=== PATIENT | female | born 1995 | race Caucasian/White ===

== ENCOUNTER 2016-07-11 09:58 | Emergency (ER) | payer OTHER ==
--- NOTE | 2016-07-11 10:08 | ER Document Report ---
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 She is complaining of left toe pain. She just received 1 mg of morphine per EMS so she currently states that her pain is a 1 out of 5 in severity. She does have full sensation, able to move all digits except the left big toe. Capillary refill is less than 2 seconds in the right toe and all other LE's digits on that foot. Obvious deformity but no open wounds. I have greeted and performed a rapid initial assessment of this patient. A comprehensive ED assessment and evaluation of the patient, analysis of test results and completion of the medical decision making process will be conducted by additional ED providers. - Related Data Allergies/Adverse Reactions: iodine Allergy (Verified 07/11/16 10:03) Penicillins Allergy (Verified 07/11/16 10:03)
[2016-07-11] MEDS ORDERED: HYDROCODONE/ACETAMINOPHEN 5-325 MG TABLET PO ONE (12:55)
--- NOTE | 2016-07-11 13:49 | ER Document Report ---
ED General - General Chief Complaint: Toe Injury Stated Complaint: LEFT TOE PAIN Mode of Arrival: Wheelchair Information source: Patient Notes: 20 yr old female presents after left foot toe injury at work, pt denies any other concerns TRAVEL OUTSIDE OF THE [place] IN LAST 30 DAYS: No - HPI Onset: Just prior to arrival Onset/Duration: Sudden Quality of pain: Achy Severity: Mild Pain Level: 1 Associated symptoms: Other Exacerbated by: Movement Relieved by: Denies Similar symptoms previously: No Recently seen / treated by doctor: No - Related Data Allergies/Adverse Reactions: iodine Allergy (Verified 07/11/16 10:03) Penicillins Allergy (Verified 07/11/16 10:03) Past Medical History - Social History Smoking Status: Never Smoker Cigarette use (# per day): No Chew tobacco use (# tins/day): No Smoking Education Provided: No Frequency of alcohol use: None Drug Abuse: None Family History: Reviewed & Not Pertinent Patient has suicidal ideation: No Patient has homicidal ideation: No Renal/ Medical History: Denies: Hx Peritoneal Dialysis Review of Systems - Review of Systems Notes: REVIEW OF SYSTEMS: CONSTITUTIONAL : Denies fever, chills, or sweats. Denies recent illness. EENT: Denies eye, ear, throat, or mouth pain or symptoms. Denies nasal or sinus congestion or discharge. Denies throat, tongue, or mouth swelling or difficulty swallowing. CARDIOVASCULAR: Denies chest pain. Denies palpitations or racing or irregular heart beat. Denies ankle edema. RESPIRATORY: Denies cough, cold, or chest congestion. Denies shortness of breath, difficulty breathing, or wheezing. GASTROINTESTINAL: Denies abdominal pain or distention. Denies nausea, vomiting , or diarrhea. Denies blood in vomitus, stools, or per rectum. Denies black, tarry stools. Denies constipation. GENITOURINARY: Denies difficulty urinating, painful urination, burning, frequency, blood in urine, or discharge. FEMALE GENITOURINARY: Denies vaginal bleeding, heavy or abnormal periods, irregular periods. Denies vaginal discharge or odor. MUSCULOSKELETAL: admits to toe pain SKIN: Denies rash, lesions or sores. HEMATOLOGIC : Denies easy bruising or bleeding. LYMPHATIC: Denies swollen, enlarged glands. NEUROLOGICAL: Denies confusion or altered mental status. Denies passing out or loss of consciousness. Denies dizziness or lightheadedness. Denies headache. Denies weakness or paralysis or loss of use of either side. Denies problems with gait or speech. Denies sensory loss, numbness, or tingling. Denies seizures. PSYCHIATRIC: Denies anxiety or stress. Denies depression, suicidal ideation, or homicidal ideation. ALL OTHER SYSTEMS REVIEWED AND NEGATIVE. Dictation was performed using [employer] voice recognition software PHYSICAL EXAMINATION: GENERAL: Well-appearing, well-nourished and in no acute distress. HEAD: Atraumatic, normocephalic. EYES: Pupils equal round extraocular movements intact, conjunctiva are normal. ENT: Nares patent NECK: Normal range of motion LUNGS: No respiratory distress Musculoskeletal: obvious medial dislocation of the left foot 1st digit NEUROLOGICAL: Normal speech, normal gait. PSYCH: Normal mood, normal affect. SKIN: Warm, Dry, normal turgor, no rashes or lesions noted. Physical Exam - Vital signs Vitals: Temp Pulse Resp BP Pulse Ox 97.8 F 89 20 129/79 H 99 07/11/16 10:07/11/16 10:07/11/16 10:07/11/16 10:07/11/16 10:03 Course - Re-evaluation Re-evalutation: 07/11/16 13:47 Area was digitally blocked, patient's toe dislocation was reduced to be morgan splinted given postop shoe and follow-up with orthopedics for possible fracture After performing a Medical Screening Examination, I estimate there is LOW risk for INTRACRANIAL HEMORRHAGE, UNSTABLE SPINE FRACTURE, CENTRAL CORD SYNDROME, CAUDA EQUINA, THORACIC AORTIC DISSECTION, PNEUMOTHORAX, PERFORATED BOWEL, RUPTURED ABDOMINAL AORTIC ANEURYSM, ACUTE TENDON RUPTURE, COMPARTMENT SYNDROME, or OPEN FRACTURE, thus I consider the discharge disposition reasonable. Also, there is no evidence or peritonitis, sepsis, or toxicity. The patient and I have discussed the diagnosis and risks, and we agree with discharging home to follow-up with their primary doctor with the understanding that symptoms and presentations can change. We also discussed returning to the Emergency Department immediately if new or worsening symptoms occur. We have discussed the symptoms which are most concerning (e.g., bloody stool, fever, changing or worsening pain, vomiting) that necessitate immediate return. - Vital Signs Vital signs: Temp Pulse Resp BP Pulse Ox 97.8 F 89 20 129/79 H 99 07/11/16 10:03 07/11/16 10:03 07/11/16 10:03 07/11/16 10:03 07/11/16 10:03 - Diagnostic Test Radiology reviewed: Image reviewed, Reports reviewed - reports given to patient Procedures - Immobilization Left Great toe Time completed: 13:47 Pre-Proc Neuro Vasc Exam: Normal Immobilizer type: Other - morgan tape with post op shoe Performed by: PCT Post-Proc Neuro Vasc Exam: Normal Alignment checked and good: Yes - Joint Reduction/Fracture Care Left Great toe Time completed: 13:20 Consent obtained: Yes Conscious sedation: No Pre-procedure NV exam: Yes Fracture: Closed Manipulation comment: reduced with no difficluty Post-procedure NV exam: Yes Post-reduction x-ray: Joint reduced Reduction attempts: 1 Complications: No - Additional Procedures digital nerve block Time performed: 13:00 - using 10 cc of sensorcaine without epi compelte nerve block performed Discharge - Discharge Clinical Impression: Fracture of 1st metatarsal Qualifiers: Encounter type: initial encounter Fracture type: closed Fracture alignment: displaced Laterality: left Qualified Code(s): S92.312A - Displaced fracture of first metatarsal bone, left foot, initial encounter for closed fracture Dislocation of toe of left foot Qualifiers: Encounter type: initial encounter Qualified Code(s): S93.105A - Unspecified dislocation of left toe(s), initial encounter Condition: Stable Disposition: HOME, SELF-CARE Instructions: Morgan Taping (toes) ([facility]), Fractured Toe ([facility]) Prescriptions: Hydrocodone/Acetaminophen [Candia 5-325 mg Tablet] 1 tab PO Q6 #8 tablet Referrals: SY GENAO MD [ACTIVE STAFF] - Follow up in 1 week
[2016-07-11 14:07] VITALS: BP 137/80
== END 2016-07-11 14:05 | disposition home or self-care (01) ==
LOC: ER 09:58
PROC: 0QSRXZZ Reposition Left Toe Phalanx, External Approach (ICD-10-PCS; principal; 2016-07-11)
DX: S92.312A Displaced fracture of first metatarsal bone, left foot, initial encounter for closed fracture (principal); S93.105A Unspecified dislocation of left toe(s), initial encounter; X58.XXXA Exposure to other specified factors, initial encounter
CPT/HCPCS: 99283

== ENCOUNTER 2018-09-27 14:34 | Inpatient (IN) | payer OTHER ==
[2018-09-27] MEDS ORDERED: RINGERS SOLUTION,LACTATED 1,000 ML IV PRN (15:22)
[2018-09-27] MEDS ORDERED: RINGERS SOLUTION,LACTATED 1,000 ML IV ONE (15:22)
[2018-09-27 15:33] LABS: APPEARANCE,URINE SLIGHTLY-CLOUDY; BILIRUBIN,URINE NEGATIVE (NEGATIVE); COLOR,URINE YELLOW; GLUCOSE, URINE NEGATIVE (NEGATIVE); KETONES,URINE NEGATIVE (NEGATIVE); LEUKOCYTE ESTERASE,URINE NEGATIVE (NEGATIVE); NITRITE,URINE NEGATIVE (NEGATIVE); PROTEIN,URINE NEGATIVE (NEGATIVE); URINE SPECIFIC GRAVITY 1.008; UROBILINOGEN,URINE NEGATIVE mg/dL (<2.0)
--- NOTE | 2018-09-27 15:42 | Admission Physical ---
Datetime Report Generated by CPN: 09/27/2018 15:42 CURRENT ADMISSION Chief Complaint: Uterine Contractions; Suspected Ruptured Membranes Admit Impression : Term, Intrauterine ; Ruptured Membranes Admit Plan: Admit to Unit ALLERGIES Medication Allergies: Yes Medication Allergies: Penicillins (07/11/2016); iodine (07/11/2016) Latex: No Latex Allergies Food Allergies: seafood OBSTETRICAL HISTORY EDC: 10/02/2018 00:00 : 2 Para: 0 Term: 0 : 0 SAB: 0 IAB: 0 Ectopic: 0 Livin Cesareans: 0 VBACs: 0 Multiple Births: 0 Gestational Diabetes: No Rh Sensitization: No Incompetent Cervix: No KEVIN: No Infertility: No ART Treatment: No Uterine Anomaly: No IUGR: No Hx Previous C/S: No Macrosomia: No Hx Loss/Stillborn: No PIH: No Hx : No Placenta Previa/Abruption: No Depression/PP Depression: No PTL/PROM: No Post Hemorrhage: No Current Procedures: Ultrasound; NST Obstetrical History Comments: G1- sab G2- current SEE RECORDS Alcohol: No Marijuana : No Cocaine: No Other Illicit Drugs: No Cigarettes: Never Smoker. [id number] MEDICAL HISTORY Diabetes: No Blood Transfusion: No Pulmonary Disease (Asthma, TB): No Breast Disease: No Hypertension: No Oncology Physician Assistant Surgery: No Heart Disease: No Hosp/Surgery: Yes Autoimmune Disorder: No Anesthetic Complications: No Kidney Disease: No Abnormal Pap Smear: No Neuro/Epilepsy: No Psychiatric Disorders: No Other Medical Diseases: Yes Hepatitis/Liver Disease: No Significant Family History: No Varicosities/Phlebitis: No Trauma/Violence : No Thyroid Dysfunction: No Medical History Comments: tympanoplastly, tonsillectomy and adnoids AV node tachycardia, intermittent SVT INFECTIOUS HISTORY Gonorrhea: No Genital Herpes: No Chlamydia: No Tuberculosis: No Syphilis: No Hepatitis: No HIV/AIDS Exposure: No Rash or Viral Illness: No HPV: No PHYSICAL EXAM General: Normal HEENT: Normal Neurologic: Normal Thyroid: Normal Heart: Normal Lungs: Normal Breast: Normal Back: Normal Abdomen: Normal Genitourinary Exam: Normal Extremities: Normal DTRs: Normal Pelvic Type: Adequate Vital Signs: Reviewed; Within Normal Limits VAGINAL EXAM Dilatation: 2 Effacement: 75 Station: -1 Contraction Comments: q2-4 MEMBRANES Membranes: Ruptured Amniotic Fluid Color: Bloody FETUS A EGA: 39.2 Monitoring: External US FHR- Baseline: 140 Variability: Moderate 6-25bpm Accelerations: 10X10 Decelerations: None FHR Category: Category I Admit Comment: at 39 wks presents c/o SROM at 1320 today. Grossly ruptured per RN's exam. GBS negative. Pt comfortable, no complaints. Seen in the office this morning and was 1-/-1 and no cervical change per RN exam. EFW 7+8 , Vtx on Leapolds. May augment with Pitocin if contractions do not strengthen. Position changes encouarged. Dr Bull is the attending MD today PLANS FOR LABOR AND DELIVERY Pain Management: Epidural Feeding Preference: Breast Benefit of Breast Feed Discussed: Yes Circumcision: Yes INFORMED CONSENT Assignment: Airam Bull MD Signature: with User ID: [email or web address] : with User ID: [email or web address]
[2018-09-27 16:05] LABS: URINE AMPHETAMINES SCREEN NEGATIVE; URINE BARBITURATES SCREEN NEGATIVE; URINE BENZODIAZEPINES SCREEN NEGATIVE; URINE COCAINE SCREEN NEGATIVE; URINE MARIJUANA (THC) SCREEN NEGATIVE; URINE METHADONE SCREEN NEGATIVE; URINE PHENCYCLIDINE SCREEN NEGATIVE
[2018-09-27 16:16] LABS: ABSOLUTE EOSINOPHILS # (AUTO) 0.1 10^3/uL (0.0-0.6); ABSOLUTE LYMPHOCYTES (AUTO) 1.5 10^3/uL (0.5-4.7); ABSOLUTE MONOCYTES (AUTO) 0.7 10^3/uL (0.1-1.4); ABSOLUTE NEUT (AUTO) 10.1 10^3/uL (1.7-8.2); BASOPHILS % (AUTO) 0.1 % (0-2); EOSINOPHILS % (AUTO) 0.8 % (0-6); HEMATOCRIT 38.2 % (36.0-47.0); HEMOGLOBIN 13.2 g/dL (12.0-15.5); LYMPHOCYTES % (AUTO) 11.8 % (13-45); MEAN CORPUSCULAR HEMOGLOBIN 29.9 pg (27.0-33.4); MEAN CORPUSCULAR HGB CONC 34.6 g/dL (32.0-36.0); MEAN CORPUSCULAR VOLUME 87 fl (80-97); MONOCYTES % (AUTO) 5.3 % (3-13); PLATELET COUNT 194 10^3/uL (150-450); RED BLOOD COUNT 4.42 10^6/uL (3.72-5.28); TOTAL CELLS COUNTED % (AUTO) 100 %; WHITE BLOOD COUNT 12.4 10^3/uL (4.0-10.5)
[2018-09-27] MEDS ORDERED: OXYTOCIN/NORMAL SALINE 20 UNIT/1,000 ML RTUINJ IV PRN (17:35)
[2018-09-27] MEDS ORDERED: OXYTOCIN/NORMAL SALINE 20 UNIT/1,000 ML RTUINJ ONE (17:38)
--- NOTE | 2018-09-27 18:31 | PDOC CONSULTATION ---
Consultation Consult Date: 09/27/18 Consult reason:: History of SVT History of Present Illness Admission Date/PCP: 09/27/18 15:24 History of Present Illness: APRYL ANDRE is a 22 year old female currently 9 months time in labor on the ADVERTISING MANAGER floor. Patient with history of SVT, and we were consulted by WOOL SHEARING SUPERVISOR to follow-up with patient with them while she is having her baby. Patient states that she has seen a band instrument maker in the past in [place] as well as an licensed master social worker. She was supposed to have an ablation done but she states she moved to this [place] and has not seen a band instrument maker since then. Currently she only intermittently has periods of palpitations and she will rest and it goes away. She does not drink coffee or caffeinated drink. She has not needed any medications for this. She denies illicit drug use. No chest pain or shortness of breath or palpitations at this time. Currently asymptomatic. Patient states she has allergies to shellfish and carries EpiPen, but has not had to use. Past Surgical History Past Surgical History: Reports: Tonsillectomy Social History Smoking Status: Never Smoker Frequency of Alcohol Use: None Hx Recreational Drug Use: No Hx Prescription Drug Abuse: No Family History Family History: Reviewed & Not Pertinent Parental Family History Reviewed: Yes Children Family History Reviewed: Yes Sibling(s) Family History Reviewed.: Yes Medication/Allergy Home Medications: Epinephrine [Epipen] 0.3 mg IJ PRN PRN 09/27/18 Vit,Calc76/Iron/Folic [Prenatabs Rx Tablet] 0.5 tab PO DAILY 09/27/18 Allergies/Adverse Reactions: iodine Allergy (Verified 07/11/16 10:03) Penicillins Allergy (Verified 07/11/16 10:03) Review of Systems Review of Systems: CONSTITUTIONAL : Fever, chills -- No; unexpalined fatigue -- No EENT: Denies eye, ear, throat, or mouth pain or symptoms. Denies nasal or sinus congestion or discharge. Denies throat, tongue, or mouth swelling or difficulty swallowing. CARDIOVASCULAR: Denies chest pain. No racing heart RESPIRATORY: Denies cough, no shortness of breath, difficulty breathing. GASTROINTESTINAL: Denies abdominal pain or distention. Denies nausea, vomiting, or diarrhea. No rectal bleeding. GENITOURINARY: Urinary symptoms -- no. MUSCULOSKELETAL: No acute weakness SKIN: Denies rash, lesions or sores. HEMATOLOGIC : Denies easy bruising or bleeding. LYMPHATIC: Denies swollen, enlarged glands. NEUROLOGICAL: New weakness, headaches, slured speach - No PSYCHIATRIC: Changes in anxiety or stress, depression, suicidal ideation, or homicidal ideation -- No ALL OTHER SYSTEMS REVIEWED AND NEGATIVE. Physical Exam Vital Signs: Intake & Output 09/26/18 09/27/18 09/28/18 06:59 06:59 06:59 Weight 78.2 kg Vital signs reviewed, stable, afebrile GENERAL: Well-developed, well-nourished female, no acute distress HEENT: Normocephalic/atraumatic NECK supple, no JVD CARDIOVASCULAR: RRR, normal S1-S2, no appreciable murmur LUNGS: CTA bilaterally ABDOMEN: Soft, gravid uterus, NT, NL bowel sounds EXTREMITIES: No edema, clubbing, cyanosis NEUROLOGICAL: Alert, oriented x 3, no weakness, nonfocal exam. Results Laboratory Results: 09/27/18 15:35 09/27/18 09/27/18 09/27/18 15:00 15:35 15:35 WBC 12.4 H RBC 4.42 Hgb 13.2 Hct 38.2 MCV 87 MCH 29.9 MCHC 34.6 RDW 15.0 H Plt Count 194 Seg Neutrophils % 82.0 H Lymphocytes % 11.8 L Monocytes % 5.3 Eosinophils % 0.8 Basophils % 0.1 Absolute Neutrophils 10.1 H Absolute Lymphocytes 1.5 Absolute Monocytes 0.7 Absolute Eosinophils 0.1 Absolute Basophils 0.0 Urine Color YELLOW Urine Appearance SLIGHTLY-CLOUDY Urine pH 8.0 Ur Specific [place] 1.008 Urine Protein NEGATIVE Urine Glucose (UA) NEGATIVE Urine Ketones NEGATIVE Urine Blood NEGATIVE Urine Nitrite NEGATIVE Ur Leukocyte Esterase NEGATIVE Blood Type B POSITIVE Antibody Screen NEGATIVE Assessment and Plan - Diagnosis (1) History of supraventricular tachycardia Is this a current diagnosis for this admission?: Yes (2) Is this a current diagnosis for this admission?: Yes (3) Active labor at term Is this a current diagnosis for this admission?: Yes - Plan Summary Plan Summary: Patient with history of SVT, but currently asymptomatic at this time. There is mild tachycardia on EKG at 105 bpm, but this is sinus rhythm and can be explained by active labor. There is no intervention indicated from the hospitalist point of view at this time, but we will follow patient with you. Also, I highly recommend you obtain a cardiology consultation if overly concerned. Above consult was discussed with Dr. Bull, the on-call WOOL SHEARING SUPERVISOR. Thank you
--- NOTE | 2018-09-27 19:40 | EKG REPORT ---
SEVERITY:- ABNORMAL ECG - SINUS TACHYCARDIA LA ENLARGEMENT NONSPECIFIC ST-T CHANGES- INFERIOR LEADS : Confirmed by: Noah Perez MD 27-Sep-2018 19:39:58
[2018-09-27] MEDS ORDERED: EPHEDRINE SULFATE INJ 50 MG/1 ML AMPULE ONE (20:49)
[2018-09-27] MEDS ORDERED: BUPIVACAINE HCL 0.25 % INJ/PF (2.5 MG/1 ML) 30 ML VIAL ONE (20:49)
[2018-09-27] MEDS ORDERED: FENTANYL/BUPIVACAINE/NS/PF 300 MCG/150 ML RTUINJ EPI ONE (20:49)
[2018-09-28] MEDS ORDERED: MISOPROSTOL 0.2 MG TABLET ONE (04:40)
[2018-09-28] MEDS ORDERED: LIDOCAINE 1% INJ-PF (10 MG/ML) 30 ML SDV ONE (04:40)
[2018-09-28] MEDS ORDERED: OXYTOCIN/NORMAL SALINE 20 UNIT/1,000 ML RTUINJ ONE (05:08)
[2018-09-28] MEDS ORDERED: PSEUDOEPHEDRINE HCL 30 MG TABLET PO PRN (05:26)
[2018-09-28] MEDS ORDERED: ZOLPIDEM TARTRATE 5 MG TABLET PO PRN (05:26)
[2018-09-28] MEDS ORDERED: DIBUCAINE 1% OINTMENT 56 GM TP PRN (05:26)
[2018-09-28] MEDS ORDERED: NA PHOS,M-B/NA PHOS,DI-BA (ADULT) 133 ML ENEMA PR PRN (05:26)
[2018-09-28] MEDS ORDERED: MAGNESIUM HYDROXIDE SUSP 30 ML UDCUP PO PRN (05:26)
[2018-09-28] MEDS ORDERED: DIPH/PERTUSS(ACELL)/TETANUS VAC/PF 0.5 ML SYR (>=10YO) IM PRN (05:26)
[2018-09-28] MEDS ORDERED: PROMETHAZINE HCL 25 MG SUPP.RECT PR PRN (05:26)
[2018-09-28] MEDS ORDERED: MEASLES,MUMPS&RUBELLA VACC/PF 0.5 ML VIAL SUBCUT PRN (05:26)
[2018-09-28] MEDS ORDERED: ACETAMINOPHEN 650 MG SUPP.RECT PR PRN (05:26)
[2018-09-28] MEDS ORDERED: GLYCERIN/WITCH HAZEL LEAF 1 EACH MED..PAD TP PRN (05:26)
[2018-09-28] MEDS ORDERED: PROMETHAZINE HCL INJ 25 MG/1 ML VIAL IV PRN (05:26)
[2018-09-28] MEDS ORDERED: BENZOCAINE/MENTHOL AEROSOL SPRAY 56 ML TOP PRN (05:26)
[2018-09-28] MEDS ORDERED: OXYTOCIN/NORMAL SALINE 20 UNIT/1,000 ML RTUINJ IV PRN (05:26)
[2018-09-28] MEDS ORDERED: PROMETHAZINE HCL 25 MG TABLET PO PRN (05:26)
[2018-09-28] MEDS ORDERED: DIPHENHYDRAMINE HCL 25 MG CAPSULE PO PRN (05:26)
[2018-09-28] MEDS ORDERED: ACETAMINOPHEN WITH CODEINE #3 TABLET PO PRN ×2 (05:26)
--- NOTE | 2018-09-28 07:21 | Warning Signs in Babies ---
VOD Warning Signs Datetime Report Generated by [facility]: 09/28/2018 07:21 VOD#608 -Warning Signs in Babies: Viewed with Parent(s)/Family (09/28/2018 07:21:Keron Lyles RN)
[2018-09-28] MEDS ORDERED: ACETAMINOPHEN WITH CODEINE #3 TABLET ONE (07:49)
[2018-09-28] MEDS ORDERED: IBUPROFEN 800 MG TABLET ONE (07:50)
[2018-09-28] MEDS: IBUPROFEN 800 MG TABLET PO SCH ×4 (07:51→22:20)
[2018-09-28] MEDS ORDERED: PRENATAL VITAMIN W DHA CAPSULE PO ONE (09:50)
[2018-09-28] MEDS ORDERED: SENNOSIDES/DOCUSATE 8.6-50 MG 1 EACH TABLET ONE (09:50)
[2018-09-28] MEDS ORDERED: DOCUSATE SODIUM 100 MG CAPSULE ONE (09:50)
[2018-09-28] MEDS ORDERED: FAMOTIDINE 20 MG TABLET ONE (09:50)
[2018-09-28] MEDS ORDERED: FERROUS SULFATE 325 MG TABLET PO ONE (09:51)
[2018-09-28] MEDS: DOCUSATE SODIUM 100 MG CAPSULE PO SCH ×2 (09:55→17:08)
[2018-09-28] MEDS: SENNOSIDES/DOCUSATE 8.6-50 MG 1 EACH TABLET PO SCH (09:55)
[2018-09-28] MEDS: PRENATAL VITAMIN W DHA CAPSULE PO SCH (09:55)
[2018-09-28] MEDS: FERROUS SULFATE 325 MG TABLET PO SCH ×2 (09:55→17:08)
[2018-09-28] MEDS: FAMOTIDINE 20 MG TABLET PO SCH ×2 (09:55→22:20)
--- NOTE | 2018-09-28 17:33 | PDOC PROGRESS REPORT ---
Subjective Progress Note for:: 09/28/18 Subjective:: The patient is a 22-year-old female with a history of PSVT who delivered a full- term via vaginal delivery early this morning. We are consulted by PLAYER SERVICES REPRESENTATIVE for history of PSVT and mild tachycardia (heart rate <120 during labor). The patient is seen on morning rounds with family members present. She reports that she is feeling well today and denies chest pain, palpitations, dyspnea, orthopnea, and peripheral edema. The patient does report that she had "pounding pulse and tunnel vision" while actively pushing, but otherwise has felt in good health. She reports that she has established with [facility] and has a follow-up appointment scheduled with Dr. Biggs in 6 months to discuss cardiac ablation. She reports she is not prescribed medications for rhythm/rate control and would not be interested in starting medications at this time even if recommended. She has no questions or concerns at this time. No concerns per nursing. Reason For Visit: ,SROM Physical Exam Vital Signs: Temp Pulse Resp BP Pulse Ox 98.0 F 111 H 16 110/62 99 09/28/18 10:12 09/28/18 10:12 09/28/18 10:12 09/28/18 10:12 09/28/18 10:12 Intake & Output 09/27/18 09/28/18 09/29/18 06:59 06:59 06:59 Weight 78.2 kg General appearance: PRESENT: no acute distress, cooperative, well-developed, well-nourished Head exam: PRESENT: atraumatic, normocephalic Eye exam: PRESENT: conjunctiva pink, EOMI, PERRLA. ABSENT: scleral icterus Ear exam: PRESENT: normal external ear exam Mouth exam: PRESENT: moist, tongue midline Neck exam: ABSENT: carotid bruit, JVD, lymphadenopathy, thyromegaly Respiratory exam: PRESENT: clear to auscultation azul, symmetrical, unlabored. ABSENT: rales, rhonchi, wheezes Cardiovascular exam: PRESENT: RRR, +S1, +S2, tachycardia - HR 105. ABSENT: diastolic murmur, rubs, systolic murmur Pulses: PRESENT: normal dorsalis pedis pul Vascular exam: PRESENT: normal capillary refill GI/Abdominal exam: PRESENT: normal bowel sounds, soft. ABSENT: distended, guarding, mass, organolmegaly, rebound, tenderness Rectal exam: PRESENT: deferred Extremities exam: PRESENT: full ROM. ABSENT: calf tenderness, clubbing, pedal edema Neurological exam: PRESENT: alert, awake, oriented to person, oriented to place, oriented to time, oriented to situation, CN II-XII grossly intact. ABSENT: motor sensory deficit Psychiatric exam: PRESENT: appropriate affect, normal mood. ABSENT: homicidal ideation, suicidal ideation Skin exam: PRESENT: dry, intact, warm. ABSENT: cyanosis, rash Results Laboratory Results: 09/27/18 15:35 Assessment and Plan - Diagnosis (1) History of supraventricular tachycardia Is this a current diagnosis for this admission?: Yes Plan: Patient with history of PSVT. She is established with [facility]; follow-up appointment scheduled with Dr. Silva in 6 months. Patient reports that they will be discussing a cardiac ablation; there has not been any recommendations for medication management at this time. She denies active chest pain, palpitations, dyspnea, orthopnea, or peripheral e gian. The patient's mild tachycardia is expected given her laboring and post-delivery recovery. There are no interventions or medications indicated from the hospitalist point of view at this time. Recommend continued monitoring of HR and BP via standard protocols. Postdelivery hemodynamic changes and complications should be ruled out prior to considering any precipitous increase in heart rate to be PSVT alone. Recommend that the patient keep her established appointment with Dr. Arguelles (commercial insurance underwriter) in 6 months. Will sign off; please re-consult if the hospitalist service can be of any additional service. (2) Term delivered Is this a current diagnosis for this admission?: Yes Plan: Management per attending provider/service. - Time Time Spent with patient: 15-24 minutes Medications reviewed and adjusted accordingly: Yes Anticipated discharge: Home
[2018-09-29] MEDS: IBUPROFEN 800 MG TABLET PO SCH ×3 (06:24→21:09)
[2018-09-29 07:02] LABS: HEMATOCRIT 35.3 % (36.0-47.0); HEMOGLOBIN 12.2 g/dL (12.0-15.5); MEAN CORPUSCULAR HEMOGLOBIN 30.1 pg (27.0-33.4); MEAN CORPUSCULAR HGB CONC 34.6 g/dL (32.0-36.0); MEAN CORPUSCULAR VOLUME 87 fl (80-97); PLATELET COUNT 166 10^3/uL (150-450); RED BLOOD COUNT 4.07 10^6/uL (3.72-5.28); RED CELL DISTRIBUTION WIDTH 15.1 % (11.5-14.0)
[2018-09-29] MEDS: FAMOTIDINE 20 MG TABLET PO SCH ×2 (10:37→21:09)
[2018-09-29] MEDS: FERROUS SULFATE 325 MG TABLET PO SCH ×2 (10:37→17:31)
[2018-09-29] MEDS: SENNOSIDES/DOCUSATE 8.6-50 MG 1 EACH TABLET PO SCH (10:37)
[2018-09-29] MEDS: DOCUSATE SODIUM 100 MG CAPSULE PO SCH ×2 (10:37→17:31)
[2018-09-29] MEDS: PRENATAL VITAMIN W DHA CAPSULE PO SCH (10:37)
--- NOTE | 2018-09-29 10:43 | PDOC PROGRESS REPORT ---
Subjective-OB Progress Note for:: 09/29/18 Subjective: 22yo G2 now P1 s/p ppd1. Ambulating, voiding and without difficulty. Pain well controlled with medication. Reports hx of hip dislocation x3 and while pushing yesterday felt same type of pain that she experiences with hip dislocation. Pt was unable to bear weight on right hip yesterday and felt bone grinding/rubbing sensation during the day, which has improved today but still painful but able to bear weight on it this AM. Also seen by hospitalist yesterday for cardiac follow up, no cardiac concerns today. No other concerns at this time. Physical Exam (OB) Vital Signs: Temp Pulse Resp BP Pulse Ox 97.9 F 99 15 120/68 100 09/29/18 07:57 09/29/18 07:57 09/29/18 07:57 09/29/18 07:57 09/29/18 07:57 Intake & Output 09/28/18 09/29/18 09/30/18 06:59 06:59 06:59 Intake Total 360 Balance 360 Weight 78.2 kg - General General Appearance: Appears well In distress: None - PIH/Pre-Eclampsia DTR's: 2 + Clonus: Negative Headache: Absent Epigastric Pain: No Visual Changes: No - Episiotomy/Laceration Site Condition: Well Approximated - Lochia Lochia Amount: Scant < 10 ml Lochia Color: Rubra/Red - Abdomen Description: Soft, Round Hernia Present: No Fundal Description: Firm Fundal Height: u/u - u/2 - Respiratory Respiratory Status: No respiratory distress - Extremities Upper extremity: Normal inspection Lower extremities: Normal inspection Hip: Pain with ROM - Neurological Cognition: Normal Orientation: AAOx4 - Psychological Associated symptoms: Normal affect, Normal mood Objective-Diagnostic Laboratory: 09/29/18 06:40 09/29/18 06:40 WBC 13.0 H RBC 4.07 Hgb 12.2 Hct 35.3 L MCV 87 MCH 30.1 MCHC 34.6 RDW 15.1 H Plt Count 166 Assessment and Plan(PN) - Assessment and Plan (1) Hip pain, right Is this a current diagnosis for this admission?: Yes Plan: will order hip x-ray at this time and consult with ortho. (2) Qualifiers: Weeks of gestation: 39 weeks Qualified Code(s): Z3A.39 - 39 weeks gestation of Is this a current diagnosis for this admission?: Yes Plan: delivered (3) Active labor at term Is this a current diagnosis for this admission?: Yes Plan: delivered (4) Term delivered Is this a current diagnosis for this admission?: Yes Plan: routine pp care (5) History of supraventricular tachycardia Is this a current diagnosis for this admission?: Yes Plan: continue to monitor, follow up as indicated or earlier prn (6) Perineal laceration during delivery, delivered Is this a current diagnosis for this admission?: Yes Plan: monitor for s/s of infection - Time Spent with Patient Time with patient: 15-25 minutes Medications reviewed and adjusted accordingly: Yes - Disposition Anticipated Discharge: Home Within: within 24 hours
--- NOTE | 2018-09-29 11:42 | RADIOLOGY REPORT (SQ) ---
EXAM DESCRIPTION: HIP RIGHT AP/LATERAL COMPLETED DATE/TIME: 09/29/2018 11:33 am REASON FOR STUDY: pt with hip pain while pushing and after delivery COMPARISON: None. NUMBER OF VIEWS: Two views. TECHNIQUE: AP pelvis and additional frog-leg view of the right hip. LIMITATIONS: None. FINDINGS: MINERALIZATION: Normal. RIGHT HIP: No fracture or dislocation. No worrisome bone lesions. LEFT HIP: No fracture or dislocation. No worrisome bone lesions. PUBIS AND ISCHIUM: No fracture. PELVIS: No fracture. SACRUM: No fracture or dislocation. No worrisome bone lesions. LOWER LUMBAR SPINE: No fracture or dislocation. No worrisome bone lesions. No significant disc disea se. SOFT TISSUES: No findings. OTHER: No other significant finding. IMPRESSION: NEGATIVE STUDY OF THE RIGHT HIP. NO RADIOGRAPHIC EVIDENCE OF ACUTE INJURY. TECHNICAL DOCUMENTATION: JOB ID: [id number] [employer]- All Rights Reserved Reading location - IP/workstation name: [email or web address]
[2018-09-30] MEDS: IBUPROFEN 800 MG TABLET PO SCH (05:45)
[2018-09-30 08:28] VITALS: BP 111/68
--- NOTE | 2018-09-30 09:19 | PDOC DISCHARGE SUMMARY ---
Final Diagnosis Discharge Date: 09/30/18 - Final Diagnosis (1) Active labor at term Is this a current diagnosis for this admission?: Yes (2) Hip pain, right Is this a current diagnosis for this admission?: Yes (3) History of supraventricular tachycardia Is this a current diagnosis for this admission?: Yes (4) Perineal laceration during delivery, delivered Is this a current diagnosis for this admission?: Yes (5) Term delivered Is this a current diagnosis for this admission?: Yes Discharge Data - Discharge Medication Prescriptions: Ibuprofen [Motrin 800 mg Tablet] 800 mg PO Q8 #60 tablet Home Medications: Epinephrine [Epipen] 0.3 mg IJ PRN PRN 09/27/18 Vit,Calc76/Iron/Folic [Prenatabs Rx Tablet] 0.5 tab PO DAILY 09/27/18 Ibuprofen [Motrin 800 mg Tablet] 800 mg PO Q8 #60 tablet 09/30/18 Reason(s) for Admission: Onset of Labor, Medical Complications Procedures: NST Intrapartum Procedure(s): Spontaneous Vaginal Delivery Complication(s): Laceration-Perineal, Laceration-Periurethral Laceration-Degree: 1st - Diagnosis Test Laboratory: Temp Pulse Resp BP Pulse Ox 98.0 F 88 18 111/68 100 09/30/18 07:57 09/30/18 07:57 09/30/18 07:57 09/30/18 07:57 09/30/18 07:57 09/27/18 09/27/18 09/29/18 15:00 15:35 06:40 RBC 4.42 4.07 Hgb 13.2 12.2 Hct 38.2 35.3 L Urine Opiates Screen NEGATIVE - Discharge information/Instructions Discharge Activity: Balance Activity w/Rest, Pelvic Rest Discharge Diet: Regular Disposition: HOME, SELF-CARE Follow up with: [facility] in: 4, Weeks
[2018-09-30] MEDS: SENNOSIDES/DOCUSATE 8.6-50 MG 1 EACH TABLET PO SCH (09:22)
[2018-09-30] MEDS: DOCUSATE SODIUM 100 MG CAPSULE PO SCH (09:22)
[2018-09-30] MEDS: PRENATAL VITAMIN W DHA CAPSULE PO SCH (09:23)
[2018-09-30] MEDS: FERROUS SULFATE 325 MG TABLET PO SCH (09:23)
[2018-09-30] MEDS: FAMOTIDINE 20 MG TABLET PO SCH (09:23)
--- NOTE | 2018-09-30 09:57 | Delivery Summary ---
Del Sum A-C Datetime Report Generated by CPN: 09/30/2018 09:57 DELIVERY PERSONNEL DELIVERY PERSONNEL: [id number] Delivery Doctor:: Airam Bull MD Labor and Delivery Nurse:: Ankita Velazquez RNphotographic plate maker Nurse:: Sandra Saba RN Park Activities Coordinator/MARKET RESEARCH ASSISTANT: Ashley Bean, SNUFF DRIER MATERNAL INFORMATION Delivery Anesthesia: Epidural Medications After Delivery: Pitocin Drip 20 Units/1000ml NSS Estimated Blood Loss (ml): 250 Maternal Complications: Other Complication Details: Maternal SVT LABOR SUMMARY EDC: 10/02/2018 00:00 No. Babies in Womb: 1 Attempted: No Labor Anesthesia: Epidural LABOR INFORMATION Reason for Induction: Not Applicable Onset of Labor: 09/27/2018 21:47 Complete Dilatation: 09/28/2018 01:50 Oxytocin: Augmentation Group B Beta Strep: negative Antibiotics # of Doses: 0 Steroids Given: None Reason Steroids Not Administered: Not Applicable MEMBRANES Membranes Rupture Method: Spontaneous Rupture of Membranes: 09/27/2018 13:20 Length of Rupture (hr): 15.28 Amniotic Fluid Color: Clear Amniotic Fluid Amount: Moderate Amniotic Fluid Odor: Normal STAGES OF LABOR Stage 1 hr: 4 Stage 1 min: 3 Stage 2 hr: 2 Stage 2 min: 47 Stage 3 hr: 0 Stage 3 min: 8 Total Time in Labor hr: 6 Total Time in Labor min: 58 VAGINAL DELIVERY Episiotomy: None Laceration #1: Periurethral Laceration Extension #1: First Degree Laceration #2: Periurethral Laceration Extension #2: First Degree Laceration #3: Perineal Laceration Extension #3: First Degree Laceration Repair: Yes Laceration Repair Note: all three small skin breaks repaired with one suture of 3-0 chromic Sponge Count Correct: Vaginal Sweep Performed Sharps Count Correct: Yes CSECTION DELIVERY Primary Indication: N/A Secondary Indication: N/A CSection Incidence: N/A Labor: N/A Elective: N/A CSection Incision: N/A BABY A INFORMATION Infant Delivery Date/Time: 09/28/2018 04:37 Method of Delivery: Vaginal Born in Route : No : N/A Forceps: N/A Vacuum Extraction: N/A Shoulder Dystocia : No PRESENTATION/POSITION BABY A Presentation: Cephalic Cephalic Presentation: Vertex Vertex Position: Right Occipital Anterior Breech Presentation: N/A PLACENTA INFORMATION BABY A Placenta Delivery Time : 09/28/2018 04:45 Placenta Method of Delivery: Spontaneous Placenta Status: Delivered SCORES BABY A Heart Rate 1 min: >100 bpm Resp Effort 1 min: Slow, Irregular Reflex Irritability 1 min: Cough or Sneeze or Pulls Away Muscle Tone 1 min: Some Flexion of Extremities Color 1 min: Body [place] [employer], Extremities Blue Resuscitation Effort 1 min: Tactile Stimulation SCORE 1 MIN: 7 Heart Rate 5 min: >100 bpm Resp Effort 5 min: Slow, Irregular Reflex Irritability 5 min: Cough or Sneeze or Pulls Away Muscle Tone 5 min: Active Motion Color 5 min: Body [employer], Extremities Blue Resuscitation Effort 5 min: Tactile Stimulation SCORE 5 MIN: 8 INFANT INFORMATION BABY A Gestational Age at Delivery: 39.3 Gestational Status: Full Term- 39- 40.6 Weeks Infant Outcome : Liveborn Condition : Stable Sex: Male Infant Sex: Male IDENTIFICATION BABY A Verification Date/Time: 09/28/2018 04:46 ID Band Number: [id number] Mother's Name Verified: Yes RN Verifying Infant: C Gentilin RN N. Velazquez, RN WEIGHT/LENGTH BABY A Birthweight (gm): 3630 Infant Weight (lb): 8 Weight (oz): 0 Length (in): 20.50 Length (cm): 52.07 CORD INFORMATION BABY A No. Cord Vessels: 3 Nuchal Cord : N/A Cord Blood Taken: Yes-For Storage (Mom's Blood type +) Infant Suction: None ASSESSMENT BABY A Infant Complications: None Physical Findings at Delivery: Molding of the Head Infant Respirations: Grunting Skin to Skin: Yes Skin to Skin Time (min): 30 Care By: [facility] RN Transferred To: [facility] BABY B INFORMATION : N/A SIGNATURES Signature: with User ID: [email or web address]
== END 2018-09-30 14:26 | disposition home or self-care (01) | DRG 807 ==
LOC: LC 14:34 → LR 15:24 → 2S 09-28 10:17
PROVIDERS: ADMIT Obstetrics & Gynecology; ATTEND Obstetrics & Gynecology
PROC: 4A1HXCZ Monitoring of Products of Conception, Cardiac Rate, External Approach (ICD-10-PCS; 2018-09-27)
PROC: 10E0XZZ Delivery of Products of Conception, External Approach (ICD-10-PCS; principal; 2018-09-28)
PROC: 0HQ9XZZ Repair Perineum Skin, External Approach (ICD-10-PCS; 2018-09-28)
PROC: 0UQMXZZ Repair Vulva, External Approach (ICD-10-PCS; 2018-09-28)
DX: O99.89 Other specified diseases and conditions complicating pregnancy, childbirth and the puerperium (principal); Z37.0 Single live birth; M25.551 Pain in right hip; O70.0 First degree perineal laceration during delivery; O71.82 Other specified trauma to perineum and vulva; Z91.013 Allergy to seafood; Z88.0 Allergy status to penicillin; Z88.8 Allergy status to other drugs, medicaments and biological substances; Z3A.39 39 weeks gestation of pregnancy
CPT/HCPCS: 36415; 80307; 81005; 85025; 85027; 86592; 86850; 86900; 86901; 93005; 93010; 94760; J2590; J3010; J3490

== ENCOUNTER → 2018-11-17 | Outpatient (CLI) | payer OTHER ==
[2018-11-22 10:36] LABS: F049-IGE APPLE 0.49 kU/L (Class I); F095-IGE PEACH 0.68 kU/L (Class II); F259-IGE GRAPE <0.10 kU/L (Class 0)
[2018-11-22 14:00] LABS: F092-IGE BANANA 0.17 kU/L (Class 0/I)
== END ==
LOC: OD 10:11
PROVIDERS: ATTEND Otolaryngology
DX: J30.9 Allergic rhinitis, unspecified (principal)
CPT/HCPCS: 36415; 82785; 86003